=== PATIENT | male | born 1955 | race Caucasian/White ===

== ENCOUNTER 2017-09-05 08:45 | Inpatient (IN) | payer BC ==
[2017-09-17] MEDS ORDERED: Ondansetron HCl/PF 4 MG/2 ML Vial IVP PRN ×3 (07:00→11:02)
[2017-09-17] MEDS ORDERED: traMADol HCl 50 MG TAB PO PRN ×3 (07:00→08:36)
[2017-09-17] MEDS ORDERED: Acetaminophen 325 MG TAB PO PRN (07:00)
[2017-09-17] MEDS ORDERED: HYDROcodone/Acetaminophen 10/325 mg Tablet PO PRN ×3 (07:00→08:36)
[2017-09-17] MEDS ORDERED: diphenhydrAMINE 25 MG CAP PO PRN (07:00)
[2017-09-17] MEDS ORDERED: Zolpidem Tartrate 5 MG TAB PO PRN ×2 (07:00→07:47)
[2017-09-17] MEDS ORDERED: Promethazine HCl 25 MG/ML VIAL IM PRN ×3 (07:00→11:02)
[2017-09-17] MEDS ORDERED: Sodium Chloride 0.9% 100 ML ONE (07:38)
[2017-09-17] MEDS ORDERED: Midazolam HCl 2 mg/2 ml Vial ONE (08:01)
[2017-09-17] MEDS ORDERED: Fentanyl 100 MCG/2 ML VIAL ONE ×4 (08:01→11:43)
[2017-09-17] MEDS ORDERED: Ropivacaine HCl/PF 250 ML in Premix Bag 1 BAG NERVE BLCK SCH (08:36)
[2017-09-17] MEDS ORDERED: Fentanyl 100 MCG/2 ML VIAL IV PRN (08:37)
[2017-09-17] MEDS ORDERED: Vancomycin HCl 1.5 GM in Sodium Chloride 0.9% 250 ML 300 ML IVPB SCH (08:45)
[2017-09-17] MEDS ORDERED: HYDROmorphone 0.5 MG/0.5 ML SYRINGE ONE (11:00)
[2017-09-17] MEDS ORDERED: HYDROmorphone 2 MG/ML VIAL SLOW IVP PRN (11:02)
[2017-09-17] MEDS ORDERED: Promethazine HCl 25 MG/ML VIAL SLOW IVP PRN (11:02)
[2017-09-17] MEDS ORDERED: Ketorolac Tromethamine 30 MG/ML VIAL ONE (11:06)
[2017-09-17] MEDS ORDERED: Ropivacaine 0.5% HCl/PF (150 MG/30 ML VIAL) ONE (12:33)
[2017-09-17] MEDS ORDERED: Bupivacaine HCl 0.5%/Epinephrine 1:200,000/PF 30 ml Vial ONE (12:33)
[2017-09-17] MEDS ORDERED: Bupivacaine 0.25% HCL 30 ML VIAL ONE (12:33)
[2017-09-17] MEDS ORDERED: Morphine 4 MG/ML VIAL ONE (12:41)
--- NOTE | 2017-09-17 12:42 | RAD ---
TWO VIEWS LEFT KNEE: Date: 09-17-17 History: Total knee post-operative. Comparison: None available. FINDINGS: There are post-surgical changes related to left total knee prosthesis. Subcutaneous emphysema and eugenia ma is seen about the left knee related to recent post-surgical change. No other findings. IMPRESSION: Post-operative changes related to recent placement of left total knee prosthesis. POS: [facility]
[2017-09-17] MEDS ORDERED: PROPOFOL 200 MG/20 ML VIAL ONE (12:51)
[2017-09-17] MEDS ORDERED: Ketorolac Tromethamine 30 MG/ML VIAL IVP SCH (14:00)
[2017-09-17] MEDS: Sodium Chloride 0.9% 1,000 ML IV SCH ×2 (14:13→17:17)
[2017-09-17] MEDS: Acetaminophen 500 MG TAB PO SCH ×3 (14:13→21:50)
[2017-09-17] MEDS: Multivitamin W/ Minerals 1 TAB PO SCH (14:14)
[2017-09-17] MEDS: Gabapentin 300 MG CAP PO SCH ×3 (14:14→21:28)
[2017-09-17] MEDS: Ferrous Gluconate 324 MG TAB PO SCH ×2 (14:14→21:27)
[2017-09-17] MEDS: Senokot S 8.6-50 MG TAB PO SCH ×2 (14:14→21:28)
[2017-09-17] MEDS: Aspirin 81 mg Enteric Coated Tablet PO SCH ×2 (14:14→21:28)
[2017-09-17] MEDS: Ketorolac Tromethamine 30 MG/ML VIAL IVP SCH ×2 (14:15→17:56)
[2017-09-17] MEDS: HYDROcodone/Acetaminophen 10/325 mg Tablet PO PRN (14:27)
[2017-09-17 15:15] VITALS: BMI 33.1
[2017-09-17] MEDS: CEFAZOLIN/Water 2 GM/20 ML SYRINGE SLOW IVP SCH ×2 (16:03→21:29)
--- NOTE | 2017-09-17 16:20 | OP ---
DATE OF PROCEDURE: 09/17/2017 PREOPERATIVE DIAGNOSIS: End-stage tricompartmental osteoarthritis, left knee. POSTOPERATIVE DIAGNOSIS: End-stage tricompartmental osteoarthritis, left knee. PROCEDURE: Left total knee arthroplasty. SURGEON: Jed Spencer M.D. STATISTICAL REPORTING ANALYST: Michael Cisneros PA-C. ANESTHESIA: General via laryngeal mask airway augmented with indwelling adductor canal block and a s tory shot sciatic block. COMPONENTS USED: [employer] Triathlon primary cemented cruciate-sparing size 7 femoral comp onent with a Triathlon primary size 6 cemented tibial baseplate, 9 mm polyethylene fixed bearing inse rt, A38 patellar button. TOURNIQUET TIME: 72 minutes at 300 mmHg. ESTIMATED BLOOD LOSS: Less than 100 mL. INPUT: 1400 crystalloid. OUTPUT: No Lind, none recorded. DRAINS: None. SPECIMENS: None. COMPLICATIONS: None. COUNTS: Correct. FINDINGS: End-stage severe degenerative tricompartmental disease, bone on bone arthrosis, periarticu lar osteophyte formation, large serous effusion, hypertrophic synovium. INDICATIONS FOR SURGERY: Nathanael is a 62-year-old white male who has had progressive left knee pain am plified with standing and walking for the last 5-7 years. He has failed conservative management and elected to proceed with total knee arthroplasty as a definitive treatment of his pain. PROCEDURE IN DETAIL: After informed consent was obtained in the preoperative holding area. The dena ent was taken to the operative suite where general anesthesia was induced. Once adequate level of ge neral anesthesia was obtained, the patient was positioned and a well-padded tourniquet was placed venkata und the left proximal thigh. The left lower extremity was then prepped and draped in the usual steri le fashion. Prior to exsanguination, a time out was called and all members of the surgical team agre ed upon site, surgeon, and patient. The extremity was then exsanguinated and the tourniquet was rais ed. A midline longitudinal incision was then made directly over the patella extending two fingerbrea dths above the superior pole of the patella and two fingerbreadths inferior to the inferior patellar pole of the patella. Deeper subcutaneous layers were dissected sharply and local bleeding was contro lled with Bovie electrocautery. A quad tendon longitudinal split was then made sharply and a median parapatellar arthrotomy was carried out both sharp and with Bovie electrocautery, carried down to one fingerbreadth medial to the tibial tubercle. The knee was then placed into flexion and the patella was everted nicely, and a copious fat pad ectomy was performed allowing for greater exposure of the t ibia. The computer-assisted distal femoral fiducial was then placed and pinned firmly, and the dista l femoral cutting guide was pinned firmly into place. The oscillating saw was then used to remove th e appropriate amount of bone. The 4-in-1 cutting block was then placed on the distal femur and the o scillating saw was used to remove the appropriate amount of bone off of the anterior, posterior, and chamfer cuts. After completion of the chamfer cuts, the box-cutting guide was placed, malleted firml y into place and pinned securely, and an osteotome was used to make the distal cut and the oscillatin g saw was then used to make the medial and lateral box cuts. This came out quite nicely and was ulises alden with Bovie electrocautery, and the oscillating saw was then used to broaden the lateral medial wa lls of the box cut. After completion of bone cuts, the anterior cruciate ligament was resected sharp ly and the posterior cruciate ligament retractor was placed and the tibia was subluxed for better exp osure. Partial meniscectomies were carried out, and the tibial computer-assisted fiducial was pinned , and the cutting guide was placed. Oscillating saw was then used to remove the bone with Hohmann re tractors used to take care and protect the collateral ligaments. After the tibial resection was perf ormed, a laminar rf technician was placed in between the freshened bone cuts. The knee placed at 90 degre es and further bilateral meniscectomies were carried out, and the curved osteotome and curettage was used to remove any excess bone spurs in the posterior compartment. The trial femoral component, tibi al baseplate were placed with the appropriate polyethylene trial insert with an appropriate polyethyl natty spacer and patellar button. The knee was taken through full range of motion with flexion and ext ension from 0-90 degrees and patellar broach squarely in the trochlea without any squinting or sublu xation noted. The knee was also stable to varus and valgus stressing at 0, 15, 45, and 90 degrees of flexion. The drawer was negative. All trial components were then removed and the keel punch was use d to provide the appropriate defect in the tibia with a mallet. The freshened bone cuts were copious ly irrigated with pulsatile lavage of about 1-1/2 liters to remove all excess debris. The freshened bone cuts were then dried and with suction and lap sponge. The knee was placed in flexion and retrac tors were placed to provide access to all bone cuts. Tobramycin impregnated methyl methacrylate ceme nt was then placed on the freshened bone cuts and implants which were malleted firmly into place. Cu rettage and [place] elevators were used to remove any excess bone cement. The knee was placed into ful l extension and the patellar button was placed under compression, and the cement was allowed to cure. Once completed, the components were again taken through full range of motion and copious irrigation of the knee was carried out with another liter of normal saline. All components were inspected full y with full range of motion and varus and valgus stressing. There was no laxity noted and full extens ion was observed clinically. Primary closure was accomplished with #2 interrupted Vicryl stitch of t he arthrotomy defect. This was oversewn with a #2 running Quill barbed stitch. The subcutaneous lay er was then closed with a running 0 barbed Monocryl stitch and skin closure accomplished with a runni ng subcuticular 3-0 Monocryl barbed Quill stitch and augmented with cement on the skin. Tourniquet w as lowered. Good spontaneous return of distal pulses was noted clinically and a sterile dressing was applied to the incision. The procedure was terminated without any complications. The patient was a wakened in the operative suite and taken to the recovery room in stable condition.
[2017-09-17] MEDS: Zolpidem Tartrate 5 MG TAB PO PRN (21:27)
[2017-09-18] MEDS: Ketorolac Tromethamine 30 MG/ML VIAL IVP SCH ×5 (00:11→23:52)
[2017-09-18] MEDS: HYDROcodone/Acetaminophen 10/325 mg Tablet PO PRN ×5 (00:23→21:05)
[2017-09-18] MEDS: Sodium Chloride 0.9% 1,000 ML IV SCH ×3 (04:28→23:12)
[2017-09-18 04:47] LABS: Hemoglobin 13.7 g/dL (14.0-18.0); Mean Corpuscular HGB CONC 33.8 g/dL (32.0-36.0); Mean Corpuscular Hemoglobin 30.6 pg (27.0-31.0); Mean Corpuscular Volume 90.5 fL (78.0-98.0); Mean Platelet Volume 7.9 fL (7.4-10.4); Platelet Count 171 thou/uL (130-400); RBC Distribution Width 11.6 % (11.5-14.5); Red Blood Cell (RBC) Count 4.48 mill/uL (4.70-6.10); White Blood Cell (WBC) Count 8.4 thou/uL (4.8-10.8)
[2017-09-18] MEDS: Aspirin 81 mg Enteric Coated Tablet PO SCH ×2 (09:12→21:06)
[2017-09-18] MEDS: Senokot S 8.6-50 MG TAB PO SCH ×2 (09:12→21:08)
[2017-09-18] MEDS: Ferrous Gluconate 324 MG TAB PO SCH ×2 (09:12→21:07)
[2017-09-18] MEDS: Gabapentin 300 MG CAP PO SCH ×3 (09:12→21:08)
[2017-09-18] MEDS: Multivitamin W/ Minerals 1 TAB PO SCH (09:12)
[2017-09-18] MEDS: Acetaminophen 500 MG TAB PO SCH ×3 (09:12→21:05)
--- NOTE | 2017-09-18 21:44 | PDOC.PN ---
- Subjective Encounter Start Date: 09/18/17 Encounter Start Time: 16:00 Doing very well. Much less pain today. Working with PT. No complaints except that he did not sleep well last night even with ambien. - Objective Vital Signs & Weight: Vital Signs (12 hours) Temp Pulse Resp BP Pulse Ox 09/18/17 21:17 99 F 93 19 112/66 95 09/18/17 15:25 98.2 F 77 18 137/79 98 09/18/17 11:20 98.6 F 80 18 133/73 96 Weight Admit Weight 265 lb Weight 265 lb I&O: 09/17/17 09/18/17 09/19/17 06:59 06:59 06:59 Intake Total 1100 1600 Balance 1100 1600 Result Diagrams: 09/18/17 03:57 Phys Exam - Physical Examination Respiratory: no wheezing, no rales, no rhonchi, clear to auscultation bilateral Cardiovascular: RRR, no significant murmur Gastrointestinal: soft, non-tender, no distention, positive bowel sounds Musculoskeletal: no edema Warm and dry. Psychiatric: normal affect Dx/Plan (1) Left knee DJD Code(s): M17.12 - UNILATERAL PRIMARY OSTEOARTHRITIS, LEFT KNEE Status: Acute Comment: Post-op. Doing well. Continue post-op protocol. (2) Peripheral neuropathy Code(s): G62.9 - POLYNEUROPATHY, UNSPECIFIED Status: Acute Comment: Stable. Continue with the gabapentin. - Plan * .
[2017-09-18] MEDS: Zolpidem Tartrate 5 MG TAB PO PRN (23:51)
[2017-09-19 05:31] LABS: Hemoglobin 14.1 g/dL (14.0-18.0); Mean Corpuscular HGB CONC 33.6 g/dL (32.0-36.0); Mean Corpuscular Hemoglobin 30.7 pg (27.0-31.0); Mean Corpuscular Volume 91.5 fL (78.0-98.0); Mean Platelet Volume 7.5 fL (7.4-10.4); Platelet Count 149 thou/uL (130-400); RBC Distribution Width 11.6 % (11.5-14.5); Red Blood Cell (RBC) Count 4.59 mill/uL (4.70-6.10)
[2017-09-19] MEDS: Ketorolac Tromethamine 30 MG/ML VIAL IVP SCH (05:36)
[2017-09-19] MEDS: HYDROcodone/Acetaminophen 10/325 mg Tablet PO PRN ×2 (05:36→09:39)
--- NOTE | 2017-09-19 07:57 | PRG ---
DATE OF SERVICE: 09/18/2017 SUBJECTIVE: Nathanael is a 62-year-old male who is postop day #1 left total knee arthroplasty. He did v vivian well. He has no complaints. He inquired about discharge tomorrow. Again, his pain is very well controlled. OBJECTIVE: VITAL SIGNS: Temperature 99.2, pulse 80, respiratory rate 18, O2 saturation is 96% on room air, bloo d pressure 132/76. GENERAL: He is alert and oriented to person, place, time, and situation. Grossly nonfocal. EXTREMI TIES: His incision is clean and closed, he is neurovascularly intact. Block is still dense, but he has good strength. ASSESSMENT: A 62-year-old male postop day #1 left total knee arthroplasty, doing well. PLAN: Continue current management, discharge home tomorrow.
[2017-09-19 08:05] VITALS: BP 132/76; TEMP 98.4
[2017-09-19] MEDS: Sodium Chloride 0.9% 1,000 ML IV SCH (09:40)
[2017-09-19] MEDS: Aspirin 81 mg Enteric Coated Tablet PO SCH (09:40)
[2017-09-19] MEDS: Multivitamin W/ Minerals 1 TAB PO SCH (09:40)
[2017-09-19] MEDS: Senokot S 8.6-50 MG TAB PO SCH (09:40)
[2017-09-19] MEDS: Gabapentin 300 MG CAP PO SCH (09:40)
[2017-09-19] MEDS: Ferrous Gluconate 324 MG TAB PO SCH (09:40)
[2017-09-19] MEDS: Acetaminophen 500 MG TAB PO SCH (12:49)
== END 2017-09-19 11:20 | disposition home or self-care (01) | DRG 470 ==
LOC: SURG A 09-17 06:43
PROVIDERS: ADMIT Orthopaedic Surgery; ATTEND Orthopaedic Surgery
PROC: 0SRD0J9 Replacement of Left Knee Joint with Synthetic Substitute, Cemented, Open Approach (ICD-10-PCS; principal; 2017-09-17)
DX: M17.12 Unilateral primary osteoarthritis, left knee (principal); G62.9 Polyneuropathy, unspecified
CPT/HCPCS: 36415; 85027; 96374; C1713; C1776; G8978-GP-CL; G8979-GP-CJ; J0131; J0670; J1170; J1885; J2250; J2270; J2704; J2795; J3010; J3370; J7050; S0020

== ENCOUNTER 2017-09-12 11:02 | Outpatient (CLI) | payer BC ==
[2017-09-12 12:28] LABS: #Eosinphils 0.1 thou/uL (0.0-0.7); #Lymphocytes 2.3 thou/uL (1.20-3.40); #Monocytes 0.5 thou/uL (0.11-0.59); #Neutrophils 4.1 thou/uL (1.40-6.50); %Basophils 0.6 % (0.0-1.0); %Eosinophils 1.7 % (0.0-10.0); %Monocytes 7.4 % (0.0-10.0); %Neutrophils 58.3 % (42.0-75.0); Hemoglobin 16.9 g/dL (14.0-18.0); Mean Corpuscular HGB CONC 35.4 g/dL (32.0-36.0); Mean Corpuscular Hemoglobin 31.5 pg (27.0-31.0); Mean Corpuscular Volume 88.9 fL (78.0-98.0); Mean Platelet Volume 7.7 fL (7.4-10.4); Platelet Count 206 thou/uL (130-400); RBC Distribution Width 11.8 % (11.5-14.5); Red Blood Cell (RBC) Count 5.36 mill/uL (4.70-6.10); White Blood Cell (WBC) Count 7.1 thou/uL (4.8-10.8)
[2017-09-12 12:29] LABS: Bilirubin Negative (Negative); Blood, Urine Negative (Negative); Clarity CLEAR (Clear); Glucose, Urine (Dipstick) Negative (Negative); Leukocyte Trace (Negative); Nitrite Negative (Negative); Protein, Urine (Dipstick) Negative (Neg-Trace); Specific Gravity, Urine 1.021 (1.002-1.036)
[2017-09-12 12:32] LABS: Bacteria/HPF None Seen HPF (None Seen); Hyaline Casts/LPF 0-3 HYALINE CAST LPF (0-3 Hyaline); RBC/HPF 0-3 HPF (0-3); Squamous Epithelial None Seen HPF (0-3); WBC/HPF 0-3 HPF (0-3)
[2017-09-12 12:47] LABS: Prothrombin Time 13.5 SEC (12.0-14.7)
[2017-09-12 12:57] LABS: Anion Gap 12 mmol/L (10-20); BUN (Urea Nitrogen) 11 mg/dL (8.4-25.7); Calc. Creatinine Clearance 0 mL/min (70-130); Calcium 9.5 mg/dL (7.8-10.44); Carbon Dioxide 26 mmol/L (22-29); Chloride 104 mmol/L (98-107); Estimated GFR-MDRD 85; Glucose 116 mg/dL (70-105); Potassium 3.9 mmol/L (3.5-5.1); Sodium 138 mmol/L (136-145)
--- NOTE | 2017-09-12 13:35 | RAD ---
TWO VIEW CHEST SERIES: COMPARISON: No prior comparison. HISTORY: Preoperative evaluation. FINDINGS: The lungs are clear. There is no effusion or pneumothorax. There is a subtle rounded density of the retrocardiac region on the frontal view not well discerned on the lateral view. Mild osseous degene rative change present. Cardiac silhouette is within normal limits of size. No significant vascular congestion. IMPRESSION: 1. No focal consolidation. 2. Subtle rounded density of the retrocardiac region on the frontal view. This could relate to hiat al hernia or alternative form of diaphragmatic hernia. The possibility of an underlying mass is not excluded. Recommend correlation with CT for confirmation. CODE T POS: AMA
--- NOTE | 2017-09-22 13:30 | EKG ---
Test Reason : Blood Pressure : / mmHG Vent. Rate : 086 BPM Atrial Rate : 086 BPM P-R Int : 130 ms QRS Dur : 104 ms QT Int : 370 ms P-R-T Axes : 064 091 042 degrees QTc Int : 442 ms Normal sinus rhythm Rightward axis Borderline ECG No previous ECGs available Confirmed by LENA PATEL (2) on 09/22/2017 1:29:35 PM Referred By: MARIANNA Confirmed By:LENA PATEL
== END 2017-09-12 11:03 | disposition home or self-care (01) ==
LOC: LABBT 11:02
PROVIDERS: ATTEND Orthopaedic Surgery
DX: Z01.818 Encounter for other preprocedural examination (principal); M17.12 Unilateral primary osteoarthritis, left knee; K44.9 Diaphragmatic hernia without obstruction or gangrene
CPT/HCPCS: 71046; 80048; 81001; 85025; 85610; 86850; 86900; 86901; 87081; 93005; 93010

== ENCOUNTER 2020-06-13 10:46 | Outpatient (CLI) | payer BC ==
[2020-06-13 13:03] LABS: #Basophils 0.1 10x3/uL (0.0-0.2); #Eosinphils 0.2 10x3/uL (0.0-0.5); #Monocytes 0.8 10x3/uL (0.0-1.1); #Neutrophils 4.3 10x3/uL (1.5-8.4); %Basophils 0.7 % (0.0-2.0); %Eosinophils 2.8 % (0.0-6.0); %Lymphocytes 33.3 % (18.0-47.0); %Neutrophils 52.8 % (40.0-75.0); Hemoglobin 16.2 g/dL (13.5-17.5); Mean Corpuscular HGB CONC 33.1 g/dL (32.0-36.0); Mean Corpuscular Hemoglobin 29.3 pg (27.0-33.0); Mean Corpuscular Volume 88.4 fl (81.2-95.1); Mean Platelet Volume 10.5 fl (7.4-10.4); Platelet Count 219 10x3/uL (150-450); RBC Distribution Width 12.3 % (11.5-14.5); Red Blood Cell (RBC) Count 5.53 10x6/uL (4.32-5.72); White Blood Cell (WBC) Count 8.1 10x3/uL (3.5-10.5)
[2020-06-13 14:17] LABS: Anion Gap 13 mmol/L (10-20); BUN (Urea Nitrogen) 11 mg/dL (8.4-25.7); Calc. Creatinine Clearance 0 mL/min (70-130); Carbon Dioxide 27 mmol/L (23-31); Chloride 104 mmol/L (98-107); Glucose 74 mg/dL (80-115); Potassium 4.5 mmol/L (3.5-5.1); Sodium 139 mmol/L (136-145)
[2020-06-14 07:02] LABS: SARS-CoV-2 PCR by NAA Not Detected (NotDetected)
== END 2020-06-13 10:47 | disposition home or self-care (01) ==
LOC: LABBT 10:46
PROVIDERS: ATTEND Orthopaedic Surgery
DX: Z01.818 Encounter for other preprocedural examination (principal); Z20.822 Contact with and (suspected) exposure to COVID-19; S46.012A Strain of muscle(s) and tendon(s) of the rotator cuff of left shoulder, initial encounter
CPT/HCPCS: 80048; 85025; 87635; 93005; 93010; U0003; U0005

== ENCOUNTER 2020-06-16 05:28 | Day surgery (SDC) | payer BC ==
[2020-06-14 13:45] VITALS: BMI 34.3
[2020-06-16] MEDS ORDERED: Fentanyl 100 MCG/2 ML VIAL ONE ×4 (06:08→09:32)
[2020-06-16] MEDS ORDERED: Bupivacaine 0.25% HCL 30 ML VIAL ONE (06:50)
[2020-06-16] MEDS ORDERED: Lidocaine 1% (PF) 30 ML VIAL ONE (06:50)
[2020-06-16] MEDS ORDERED: Midazolam HCl 2 mg/2 ml Vial ONE (06:50)
[2020-06-16] MEDS ORDERED: Succinylcholine 200 MG/10 ml SYRINGE FS ONE (07:35)
[2020-06-16] MEDS ORDERED: Lidocaine 1% PF 5 ML VIAL ONE (07:35)
[2020-06-16] MEDS ORDERED: PROPOFOL 200 MG/20 ML VIAL ONE (07:35)
[2020-06-16] MEDS ORDERED: Glycopyrrolate 0.2 MG/ML 5 ML SYRINGE ONE (07:35)
[2020-06-16] MEDS ORDERED: Ondansetron PF 4 MG/2 ML Vial ONE (07:35)
[2020-06-16] MEDS ORDERED: Ketorolac Tromethamine 30 MG/ML VIAL ONE (07:35)
[2020-06-16] MEDS ORDERED: Rocuronium Bromide 10 MG/ML (10ML VIAL) ONE (07:35)
[2020-06-16] MEDS ORDERED: Ropivacaine 0.2% HCl/PF 20 ML ONE (07:53)
[2020-06-16] MEDS ORDERED: Fentanyl 100 MCG/2 ML VIAL IV PRN (09:08)
[2020-06-16] MEDS ORDERED: traMADol HCl 50 MG TAB PO PRN ×2 (09:15)
[2020-06-16] MEDS ORDERED: Ketorolac Tromethamine 30 MG/ML VIAL IVP PRN (09:15)
[2020-06-16] MEDS ORDERED: Zolpidem Tartrate 5 MG TAB PO PRN (09:15)
[2020-06-16] MEDS ORDERED: Promethazine HCl 25 MG/ML VIAL IM PRN (09:15)
[2020-06-16] MEDS ORDERED: Ropivacaine 0.2% 550 ML 550 ML NERVE BLCK SCH (09:15)
[2020-06-16] MEDS ORDERED: HYDROcodone/Acetaminophen 5/325 mg Tablet PO PRN ×2 (09:15)
[2020-06-16] MEDS ORDERED: Ondansetron PF 4 MG/2 ML Vial IVP PRN (09:15)
== END 2020-06-16 12:23 | disposition home or self-care (01) ==
LOC: SDC 05:28
PROVIDERS: ATTEND Orthopaedic Surgery
PROC: 0LQ24ZZ Repair Left Shoulder Tendon, Percutaneous Endoscopic Approach (ICD-10-PCS; principal; 2020-06-16)
PROC: 0RNK4ZZ Release Left Shoulder Joint, Percutaneous Endoscopic Approach (ICD-10-PCS; principal; 2020-06-16)
PROC: 3E0T3BZ Introduction of Anesthetic Agent into Peripheral Nerves and Plexi, Percutaneous Approach (ICD-10-PCS; principal; 2020-06-16)
DX: S46.012A Strain of muscle(s) and tendon(s) of the rotator cuff of left shoulder, initial encounter (principal); G89.18 Other acute postprocedural pain; Z79.899 Other long term (current) drug therapy
CPT/HCPCS: A4306; C1713; J0690; J1885; J2001; J2250; J2405; J2704; J2795; J3010; S0020

== ENCOUNTER 2020-11-10 10:11 | Outpatient (CLI) | payer BC ==
[2020-11-10 12:06] LABS: #Basophils 0.1 10x3/uL (0.0-0.2); #Eosinphils 0.3 10x3/uL (0.0-0.5); #Monocytes 0.7 10x3/uL (0.0-1.1); #Neutrophils 3.9 10x3/uL (1.5-8.4); %Basophils 0.8 % (0.0-2.0); %Eosinophils 3.8 % (0.0-6.0); Hemoglobin 15.3 g/dL (13.5-17.5); Mean Corpuscular HGB CONC 33.1 g/dL (32.0-36.0); Mean Corpuscular Hemoglobin 29.1 pg (27.0-33.0); Mean Corpuscular Volume 87.8 fl (81.2-95.1); Mean Platelet Volume 10.9 fl (7.4-10.4); Platelet Count 218 10x3/uL (150-450); RBC Distribution Width 12.5 % (11.5-14.5); Red Blood Cell (RBC) Count 5.26 10x6/uL (4.32-5.72); White Blood Cell (WBC) Count 7.6 10x3/uL (3.5-10.5)
[2020-11-10 12:17] LABS: Anion Gap 16 mmol/L (10-20); BUN (Urea Nitrogen) 15 mg/dL (8.4-25.7); Calc. Creatinine Clearance 0 mL/min (70-130); Calcium 9.2 mg/dL (7.8-10.44); Carbon Dioxide 21 mmol/L (23-31); Chloride 108 mmol/L (98-107); Glucose 104 mg/dL (80-115); Potassium 4.5 mmol/L (3.5-5.1); Sodium 140 mmol/L (136-145)
[2020-11-11 00:34] LABS: SARS-CoV-2 PCR by NAA Not Detected (NotDetected)
== END 2020-11-10 10:12 | disposition home or self-care (01) ==
LOC: LABBT 10:11
PROVIDERS: ATTEND Orthopaedic Surgery
DX: Z01.818 Encounter for other preprocedural examination (principal); S46.012A Strain of muscle(s) and tendon(s) of the rotator cuff of left shoulder, initial encounter; Z20.822 Contact with and (suspected) exposure to COVID-19
CPT/HCPCS: 80048; 85025; 93005; 93010; U0003; U0005

== ENCOUNTER 2020-11-15 06:35 | Day surgery (SDC) | payer BC ==
[2020-11-14 10:50] VITALS: BMI 35.3
[2020-11-15] MEDS ORDERED: VANCOMYCIN 2 GRAM/400 ML BAG 2 GM in Premix Bag 1 BAG IVPB SCH (07:15)
[2020-11-15] MEDS ORDERED: Tranexamic Acid 1,000 MG/10 ML VIAL ONE (07:40)
[2020-11-15] MEDS ORDERED: Sodium Chloride 0.9% 100 ML ONE (07:41)
[2020-11-15] MEDS ORDERED: Midazolam HCl 2 mg/2 ml Vial ONE (07:43)
[2020-11-15] MEDS ORDERED: Sodium Chloride 0.9% 10 ML ONE (07:43)
[2020-11-15] MEDS ORDERED: Fentanyl 100 MCG/2 ML VIAL ONE ×4 (07:43→13:10)
[2020-11-15] MEDS ORDERED: Lidocaine 2% Jelly 5 ML TUBE ONE (09:12)
[2020-11-15] MEDS ORDERED: Phenylephrine 10 MG/ML VIAL ONE (09:15)
[2020-11-15] MEDS ORDERED: Zolpidem Tartrate 5 MG TAB PO PRN (09:30)
[2020-11-15] MEDS ORDERED: Ondansetron PF 4 MG/2 ML Vial IVP PRN (09:30)
[2020-11-15] MEDS ORDERED: traMADol HCl 50 MG TAB PO PRN ×2 (09:30)
[2020-11-15] MEDS ORDERED: Ropivacaine 0.2% 550 ML 550 ML NERVE BLCK SCH (09:30)
[2020-11-15] MEDS ORDERED: HYDROcodone/Acetaminophen 10/325 mg Tablet PO PRN ×2 (09:30)
[2020-11-15] MEDS ORDERED: Promethazine HCl 25 MG/ML VIAL IM PRN (09:30)
[2020-11-15] MEDS ORDERED: Rocuronium Bromide 10 MG/ML (10ML VIAL) ONE (10:08)
[2020-11-15] MEDS ORDERED: Bupivacaine HCl 0.5%/Epinephrine 1:200,000/PF 30 ml Vial ONE (10:08)
[2020-11-15] MEDS ORDERED: Glycopyrrolate 0.2 MG/ML 5 ML SYRINGE ONE (10:08)
[2020-11-15] MEDS ORDERED: PROPOFOL 200 MG/20 ML VIAL ONE (10:08)
[2020-11-15] MEDS ORDERED: ePHEDrine 50 MG/ML VIAL ONE (10:08)
[2020-11-15] MEDS ORDERED: Ketorolac Tromethamine 30 MG/ML VIAL ONE (12:49)
[2020-11-15] MEDS ORDERED: HYDROcodone/Acetaminophen 5/325 mg Tablet ONE (14:00)
== END 2020-11-15 14:47 | disposition home or self-care (01) ==
LOC: SDC 06:35
PROVIDERS: ATTEND Orthopaedic Surgery
PROC: 0LS40ZZ Reposition Left Upper Arm Tendon, Open Approach (ICD-10-PCS; principal; 2020-11-15)
PROC: 0RRK00Z Replacement of Left Shoulder Joint with Reverse Ball and Socket Synthetic Substitute, Open Approach (ICD-10-PCS; principal; 2020-11-15)
PROC: 3E0T3BZ Introduction of Anesthetic Agent into Peripheral Nerves and Plexi, Percutaneous Approach (ICD-10-PCS; principal; 2020-11-15)
DX: S46.012A Strain of muscle(s) and tendon(s) of the rotator cuff of left shoulder, initial encounter (principal); M75.22 Bicipital tendinitis, left shoulder; T84.84XA Pain due to internal orthopedic prosthetic devices, implants and grafts, initial encounter; Z79.899 Other long term (current) drug therapy; Z96.652 Presence of left artificial knee joint; Z98.890 Other specified postprocedural states; W10.8XXA Fall (on) (from) other stairs and steps, initial encounter
CPT/HCPCS: A4306; J0690; J1885; J2250; J2370; J2704; J2795; J3010; J3370; J3490